=== PATIENT | female | born 1980 | race Caucasian/White ===

== ENCOUNTER → 2018-06-06 13:47 | Emergency (ER) | payer SELFPAY ==
[~2018-06-06 13:47] MED LIST: PPD test dose* 5 TU/0.1 ML TEST (*USE PPD ORDER SET*) ONE
== END | disposition home or self-care (01) ==
LOC: OHCORT 13:47
DX: Z11.1 Encounter for screening for respiratory tuberculosis (principal)

== ENCOUNTER 2020-11-19 09:26 | Inpatient (IN) ==
[~2020-11-19 09:26] MED LIST changes: +Buffered Lidocaine 1% SYRIN 1 ml INTRADERM ONE; +Famotidine IV 10 MG/ML 2 ml VIAL (20 mg) IV ONE; +Famotidine IV 10 MG/ML 2 ml VIAL (20 mg) ONE; +Heparin 5000 UNITS/ML 1 mL VIAL ONE; +Lactated Ringers 1000 ml BAG 1,000 ML IV SCH; -PPD test dose* 5 TU/0.1 ML TEST (*USE PPD ORDER SET*) ONE; +ceFAZolin 1 GM ADVAN 1 GM ADDV.VIAL IVPB ONE; +ceFAZolin 2 GM in NS PREMIX 2 GM/100 ML BAG IVPB ONE
[2020-11-19] MEDS ORDERED: fentaNYL 250 mcg/5 ml 50 MCG/ML 5 ml VIAL (250 MCG) ONE (09:43)
[2020-11-19] MEDS ORDERED: Midazolam 2 mg/2 ml VIAL 1 mg/ml 2 ml VIAL (2 mg) ONE (09:43)
[2020-11-19] MEDS ORDERED: Lidocaine 2% PF 5 ML VIAL ONE (09:45)
[2020-11-19] MEDS ORDERED: Bupivacaine 0.25% EPI 200,000 30 ML SDV ONE (11:15)
[2020-11-19] MEDS ORDERED: Methylene Blue 0.5 % 50 MG/10 ML AMP IV ONE (11:15)
[2020-11-19] MEDS ORDERED: Propofol 10 MG/ML 20 ML BTL ONE (11:23)
[2020-11-19] MEDS ORDERED: Rocuronium 50 mg VIAL 10 mg/ml 5 ml VIAL (50 mg) ONE ×2 (11:27→13:21)
[2020-11-19] MEDS ORDERED: Phenylephrine IV 10 MG/ML 1 ml VIAL ONE (11:51)
[2020-11-19] MEDS ORDERED: Dexamethasone IV 4 MG/ML VIAL 1 ml VIAL ONE (12:36)
[2020-11-19] MEDS ORDERED: Ondansetron 4 mg VIAL 2 MG/ML 2 ml VIAL ONE ×2 (12:36→16:54)
[2020-11-19] MEDS ORDERED: Sugammadex 500 MG/5 ML 5 ml VIAL IV PUSH ONE (12:36)
[2020-11-19] MEDS ORDERED: HYDROmorphone 1 MG/1 ML SYRINGE ONE ×2 (12:47→13:24)
[2020-11-19] MEDS ORDERED: DiMENhydriNATE IV 50 mg/ml 1 ml VIAL IV PUSH PRN (13:05)
[2020-11-19] MEDS ORDERED: Ondansetron 4 mg VIAL 2 MG/ML 2 ml VIAL IV PRN (13:05)
[2020-11-19] MEDS ORDERED: Acetaminophen IV 1 GM/100ML 100 ML IV ONE ×2 (13:05→14:52)
[2020-11-19] MEDS ORDERED: fentaNYL 100 mcg/2 ml 50 MCG/ML VIAL IV PRN (13:05)
[2020-11-19] MEDS ORDERED: Naloxone 0.4 mg VIAL 0.4 mg/ml 1 ml VIAL IV PRN (13:05)
[2020-11-19] MEDS ORDERED: diPHENhydraMINE IV 50 MG/ML 1 ml VIAL (BENADRYL) SLOW PUSH PRN (16:37)
[2020-11-19] MEDS ORDERED: HYDROmorphone 0.5 MG/0.5 ML SYRINGE IV SLOW PU PRN (16:37)
[2020-11-19] MEDS ORDERED: HYDROmorphone 1 MG/1 ML SYRINGE IV SLOW PU PRN (16:37)
[2020-11-19] MEDS ORDERED: DiMENhydriNATE IV 50 mg/ml 1 ml VIAL ONE (16:54)
[2020-11-19] MEDS: Lactated Ringers 1000 ml BAG 1,000 ML IV SCH (18:17)
[2020-11-19] MEDS ORDERED: Metoclopramide 5 MG/ML VIAL (10 mg) IV SLOW PU ONE (19:00)
[2020-11-19] MEDS: Famotidine IV 10 MG/ML 2 ml VIAL (20 mg) IV SLOW PU SCH (22:26)
[2020-11-19] MEDS: Heparin 5000 UNITS/ML 1 mL VIAL SUBCUT SCH (22:26)
[2020-11-20] MEDS: Lactated Ringers 1000 ml BAG 1,000 ML IV SCH ×2 (01:54→09:04)
[2020-11-20] MEDS: Ondansetron 4 mg VIAL 2 MG/ML 2 ml VIAL IV PRN ×3 (02:01→16:14)
[2020-11-20] MEDS: Heparin 5000 UNITS/ML 1 mL VIAL SUBCUT SCH ×2 (06:16→13:37)
[2020-11-20] MEDS: Famotidine IV 10 MG/ML 2 ml VIAL (20 mg) IV SLOW PU SCH (09:01)
[2020-11-20] MEDS ORDERED: HYDROcodone/ACET. 7.5/325 LIQ 15 ML UDC PO PRN (11:45)
[2020-11-20 15:49] VITALS: BP 133/56
[2020-11-20] MEDS ORDERED: D5W 1/2 NS KCl 20 meq 1000 ml 1,000 ML IV SCH (17:00)
[2020-11-21] MEDS ORDERED: Flu vaccine *QUAD* 2021-22* 0.5 ML SYRINGE IM ONE (09:00)
[2020-11-22] MEDS ORDERED: Scopolamine PATCH Remove NOTE PATCH OFF ONE (13:06)
== END 2020-11-20 16:50 | disposition home or self-care (01) | DRG 403 ==
LOC: AA 09:26 → SSU 18:25
PROVIDERS: ADMIT Surgery; ATTEND Surgery

== ENCOUNTER 2023-03-06 16:07 | Inpatient (IN) ==
[2023-03-06 16:42] LABS: Hematocrit 28.8 % (35-45); Hemoglobin 8.6 g/dL (11.5-14.3); Mean Corpuscular Hgb Conc 29.7 g/dL (31-36); Mean Corpuscular Volume 57.1 fL (80-97); Mean Platelet Volume 6.6 fL (7.5-11.2); Platelet Count 597 10^3/uL (150-450); Red Blood Count 5.04 10^6/uL (3.63-4.92); Red Cell Distribution Width 18.7 % (12-17); White Blood Count 9.7 10^3/uL (3.8-11.8)
[2023-03-06 16:44] LABS: INR 1.14 (0.83-1.13)
[2023-03-06 16:55] LABS: ALT 16 U/L (7-52); AST 15 U/L (13-39); Albumin 3.5 g/dL (3.2-5.2); Albumin/Globulin Ratio 0.9 (1-3); Alkaline Phosphatase 74 U/L (35-149); Anion Gap 7 mmol/L (2-16); Blood Urea Nitrogen 23 mg/dL (6-24); CO2 Carbon Dioxide 24 mmol/L (22-32); Calcium 8.9 mg/dL (8.6-10.3); Chloride 106 mmol/L (101-111); Creatinine, Serum 0.42 mg/dL (0.51-0.95); Globulin 3.9 g/dL (2-4); Glucose 135 mg/dL (70-100); Potassium 3.3 mmol/L (3.5-5.0); Sodium 137 mmol/L (135-145); Total Bilirubin 0.3 mg/dL (0.2-1.0); Total Protein 7.4 g/dL (6.4-8.9); eGFR CKD-EPI 125.9 (>60)
[2023-03-06 17:01] LABS: ABS Basophils 0.2 10^3/uL (0.0-0.1); ABS Monocytes 0.5 10^3/uL (0.0-0.9); ABS Nucleated RBC 0.01 10^3/ul; Anisocytosis 2+; Eosinophil % 0.4 %; Hypochromasia 1+; Lymphocyte % 10.5 %; Microcytosis 2+; Nucleated Red Blood Cells % 0.1 %/100WBC (0.0-0.8)
[2023-03-06 17:02] LABS: High Sens Troponin Baseline < 3 pg/mL (<15)
[2023-03-06] MEDS ORDERED: fentaNYL 100 mcg/2 ml 50 MCG/ML VIAL IV SLOW PU ONE (17:30)
[2023-03-06 17:43] LABS: Lipase 57 U/L (11.0-82.0)
[2023-03-06] MEDS ORDERED: Piperacillin/Tazobac 3.375 BAG 3.375 GM/100 ML BAG IV ONE (17:44)
[2023-03-06] MEDS ORDERED: HYDROmorphone 0.5 MG/0.5 ML SYRINGE IV SLOW PU PRN (17:51)
[2023-03-06] MEDS ORDERED: Zosyn per Pharmacy NOTE FOLLOW UP SCH (18:00)
[2023-03-06 18:04] LABS: High Sensitivity Troponin 1 Hr < 3 pg/mL (<15)
[2023-03-06] MEDS ORDERED: Iodixanol (CONTRAST) 320 MG/ML 100 ML SDV IV ONE (18:30)
[2023-03-06] MEDS ORDERED: Midazolam 2 mg/2 ml VIAL 1 mg/ml 2 ml VIAL (2 mg) ONE (19:06)
[2023-03-06] MEDS ORDERED: Rocuronium 50 mg VIAL 10 mg/ml 5 ml VIAL (50 mg) ONE (19:06)
[2023-03-06] MEDS ORDERED: Propofol 10 MG/ML 20 ML BTL ONE (19:06)
[2023-03-06] MEDS ORDERED: Lidocaine 2% PF 5 ML VIAL ONE (19:06)
[2023-03-06] MEDS ORDERED: fentaNYL 100 mcg/2 ml 50 MCG/ML VIAL ONE (19:07)
[2023-03-06] MEDS ORDERED: Famotidine IV 10 MG/ML 2 ml VIAL (20 mg) ONE (19:20)
[2023-03-06] MEDS ORDERED: HYDROmorphone 1 MG/1 ML SYRINGE IV SLOW PU PRN (19:23)
[2023-03-06] MEDS ORDERED: HYDROmorphone 1 MG/1 ML SYRINGE IV SLOW PU ONE (19:36)
[2023-03-06] MEDS ORDERED: Bupivacaine 0.25% SDV 30 ML ONE (19:44)
[2023-03-06] MEDS ORDERED: Ondansetron 4 mg VIAL 2 MG/ML 2 ml VIAL ONE (19:59)
[2023-03-06 20:06] LABS: Rapid COVID-19 Molecular Undetected (Undetected)
[2023-03-06 20:14] LABS: Influenza A Molecular Negative (Negative); Influenza B Molecular Negative (Negative)
[2023-03-06] MEDS ORDERED: Phenylephrine IV 10 MG/ML 1 ml VIAL ONE (20:18)
[2023-03-06] MEDS ORDERED: Acetaminophen IV 1 GM/100ML 1,000 MG/100 ML BAG IV ONE (20:35)
[2023-03-06] MEDS ORDERED: Dexamethasone IV 4 MG/ML VIAL 1 ml VIAL ONE (20:42)
[2023-03-06] MEDS ORDERED: HYDROmorphone 1 MG/1 ML SYRINGE IV PRN (20:53)
[2023-03-06] MEDS ORDERED: Naloxone 0.4 mg VIAL 0.4 mg/ml 1 ml VIAL IV PRN (20:53)
[2023-03-06] MEDS ORDERED: fentaNYL 100 mcg/2 ml 50 MCG/ML VIAL IV PRN (20:53)
[2023-03-06] MEDS ORDERED: Ondansetron 4 mg VIAL 2 MG/ML 2 ml VIAL IV PRN (20:53)
[2023-03-06] MEDS ORDERED: ZOSYN 3.375 GM Q8H per EXTENDED INFUSION IV SCH (22:00)
[2023-03-06] MEDS ORDERED: Piperacillin/Tazobac 3.375 BAG 3.375 GM/100 ML BAG IV SCH (23:45)
[2023-03-06] MEDS: D5W 1/2 NS 40 Meq KCL 1000 ml 1,000 ML IV SCH (23:54)
[2023-03-06] MEDS: ZOSYN 3.375 GM Q8H per EXTENDED INFUSION IV SCH (23:55)
[2023-03-06] MEDS: Pantoprazole VIAL 40 MG VIAL IV SCH (23:57)
[2023-03-06] MEDS: HYDROmorphone 0.5 MG/0.5 ML SYRINGE IV SLOW PU PRN (23:57)
[2023-03-06] MEDS: Ondansetron 4 mg VIAL 2 MG/ML 2 ml VIAL IV PRN (23:57)
[2023-03-07] MEDS: HYDROmorphone 0.5 MG/0.5 ML SYRINGE IV SLOW PU PRN ×4 (01:33→08:31)
[2023-03-07] MEDS: Ondansetron 4 mg VIAL 2 MG/ML 2 ml VIAL IV PRN (05:12)
[2023-03-07 06:26] LABS: ABS Lymphocytes 0.3 10^3/uL (1.0-4.8); ABS Monocytes 0.7 10^3/uL (0.0-0.9); ABS Neutrophils 12.8 10^3/uL (1.5-7.6); Hematocrit 24.5 % (35-45); Hemoglobin 7.1 g/dL (11.5-14.3); Lymphocyte % 2.5 %; Mean Corpuscular Hemoglobin 16.7 pg (27-33); Mean Corpuscular Hgb Conc 29.1 g/dL (31-36); Mean Corpuscular Volume 57.2 fL (80-97); Mean Platelet Volume 6.7 fL (7.5-11.2); Platelet Count 468 10^3/uL (150-450); Red Blood Count 4.28 10^6/uL (3.63-4.92); Red Cell Distribution Width 18.8 % (12-17); White Blood Count 13.9 10^3/uL (3.8-11.8)
[2023-03-07 06:43] LABS: Calcium 8.4 mg/dL (8.6-10.3); Creatinine, Serum 0.48 mg/dL (0.51-0.95); Potassium 3.4 mmol/L (3.5-5.0)
[2023-03-07] MEDS: ZOSYN 3.375 GM Q8H per EXTENDED INFUSION IV SCH ×2 (07:29→16:01)
[2023-03-07] MEDS: D5W 1/2 NS 40 Meq KCL 1000 ml 1,000 ML IV SCH ×2 (08:18→18:16)
[2023-03-07] MEDS: Pantoprazole VIAL 40 MG VIAL IV SCH ×2 (08:31→22:00)
[2023-03-07] MEDS ORDERED: KCL 20 MEQ/100 ML IVPREMIX 20 MEQ/100 ML BAG IV ONE (11:19)
[2023-03-07] MEDS: Acetaminophen IV 1 GM/100ML 1,000 MG/100 ML BAG IV SCH ×2 (11:37→20:36)
[2023-03-07] MEDS ORDERED: HYDROmorphone 0.5 MG/0.5 ML SYRINGE IV SLOW PU PRN ×2 (12:07→22:20)
[2023-03-07] MEDS: Nicotine PATCH 21 MG/24 HR PATCH TRANSDERM SCH (12:07)
[2023-03-07] MEDS ORDERED: fentaNYL 100 mcg/2 ml 50 MCG/ML VIAL IV SLOW PU PRN ×2 (22:19→22:20)
[2023-03-08] MEDS: ZOSYN 3.375 GM Q8H per EXTENDED INFUSION IV SCH ×3 (00:18→16:41)
[2023-03-08] MEDS ORDERED: Methylene Blue 1% (ANTIDOTE) 10 MG/ML 1 ML SDV VIAL IVPB ONE (00:36)
[2023-03-08] MEDS ORDERED: Bupivacaine 0.25% SDV 30 ML ONE (00:36)
[2023-03-08] MEDS ORDERED: NS 0.9% 1000 ml BAG 1,000 ML IV SCH (01:00)
[2023-03-08] MEDS: Ondansetron 4 mg VIAL 2 MG/ML 2 ml VIAL IV PRN ×4 (01:03→19:47)
[2023-03-08] MEDS: HYDROmorphone 1 MG/1 ML SYRINGE IV SLOW PU PRN ×5 (01:04→22:15)
[2023-03-08] MEDS: Acetaminophen IV 1 GM/100ML 1,000 MG/100 ML BAG IV SCH ×4 (01:25→20:10)
[2023-03-08] MEDS ORDERED: Naloxone 0.4 mg VIAL 0.4 mg/ml 1 ml VIAL IV PRN (02:29)
[2023-03-08] MEDS ORDERED: HYDROmorphone 1 MG/1 ML SYRINGE IV PRN (02:29)
[2023-03-08] MEDS ORDERED: fentaNYL 100 mcg/2 ml 50 MCG/ML VIAL IV PRN (02:29)
[2023-03-08] MEDS ORDERED: Ondansetron 4 mg VIAL 2 MG/ML 2 ml VIAL IV PRN (02:29)
[2023-03-08] MEDS ORDERED: Rocuronium 50 mg VIAL 10 mg/ml 5 ml VIAL (50 mg) ONE (02:50)
[2023-03-08] MEDS ORDERED: Propofol 10 MG/ML 20 ML BTL ONE (02:50)
[2023-03-08] MEDS ORDERED: Phenylephrine 40 mcg/mL 10mL (400mcg) SYRINGE ONE (03:21)
[2023-03-08] MEDS ORDERED: fentaNYL 100 mcg/2 ml 50 MCG/ML VIAL ONE ×2 (03:34→05:08)
[2023-03-08] MEDS ORDERED: Desflurane 240 ML INH ONE (04:26)
[2023-03-08] MEDS ORDERED: Ondansetron 4 mg VIAL 2 MG/ML 2 ml VIAL ONE ×2 (04:32→05:08)
[2023-03-08] MEDS ORDERED: Dextrose 50% Syringe 50 ml 25 GM/50 ML SYRINGE ONE (05:39)
[2023-03-08] MEDS ORDERED: Scopolamine 1 mg/72hr PATCH ONE (05:41)
[2023-03-08] MEDS: Pantoprazole VIAL 40 MG VIAL IV SCH ×2 (09:24→20:10)
[2023-03-08] MEDS: Nicotine PATCH 21 MG/24 HR PATCH TRANSDERM SCH (10:02)
[2023-03-08 15:01] LABS: ABS Basophils 0.1 10^3/uL (0.0-0.1); ABS Lymphocytes 0.8 10^3/uL (1.0-4.8); ABS Monocytes 0.6 10^3/uL (0.0-0.9); ABS Neutrophils 10.4 10^3/uL (1.5-7.6); ABS Nucleated RBC 0.01 10^3/ul; Eosinophil % 0.2 %; Hematocrit 22.8 % (35-45); Hemoglobin 6.6 g/dL (11.5-14.3); Lymphocyte % 6.9 %; Mean Corpuscular Hemoglobin 16.5 pg (27-33); Mean Corpuscular Hgb Conc 28.8 g/dL (31-36); Mean Corpuscular Volume 57.5 fL (80-97); Mean Platelet Volume 8.3 fL (7.5-11.2); Platelet Count 394 10^3/uL (150-450); Red Blood Count 3.97 10^6/uL (3.63-4.92); Red Cell Distribution Width 18.5 % (12-17); White Blood Count 11.9 10^3/uL (3.8-11.8)
[2023-03-08 15:20] LABS: Calcium 8.1 mg/dL (8.6-10.3); Creatinine, Serum 0.43 mg/dL (0.51-0.95); Potassium 3.9 mmol/L (3.5-5.0); eGFR CKD-EPI 125.2 (>60)
[2023-03-08] MEDS: D5W 1/2 NS KCl 20 meq 1000 ml 1,000 ML IV SCH (15:20)
[2023-03-08] MEDS ORDERED: fentaNYL 100 mcg/2 ml 50 MCG/ML VIAL IV SLOW PU ONE (21:45)
[2023-03-09] MEDS: ZOSYN 3.375 GM Q8H per EXTENDED INFUSION IV SCH ×3 (00:38→17:26)
[2023-03-09] MEDS: Ondansetron 4 mg VIAL 2 MG/ML 2 ml VIAL IV PRN ×2 (00:50→21:04)
[2023-03-09] MEDS: Acetaminophen IV 1 GM/100ML 1,000 MG/100 ML BAG IV SCH ×5 (02:21→20:25)
[2023-03-09] MEDS: HYDROmorphone 1 MG/1 ML SYRINGE IV SLOW PU PRN ×4 (02:21→21:00)
[2023-03-09] MEDS: D5W 1/2 NS KCl 20 meq 1000 ml 1,000 ML IV SCH ×2 (05:08→15:33)
[2023-03-09 06:20] LABS: ABS Eosinophils 0.1 10^3/uL (0.0-0.5); ABS Lymphocytes 0.7 10^3/uL (1.0-4.8); ABS Monocytes 0.5 10^3/uL (0.0-0.9); ABS Neutrophils 7.2 10^3/uL (1.5-7.6); Eosinophil % 0.8 %; Hematocrit 22.2 % (35-45); Hemoglobin 6.6 g/dL (11.5-14.3); Lymphocyte % 7.9 %; Mean Corpuscular Hemoglobin 16.8 pg (27-33); Mean Corpuscular Hgb Conc 29.5 g/dL (31-36); Mean Platelet Volume 8.3 fL (7.5-11.2); Platelet Count 397 10^3/uL (150-450); White Blood Count 8.4 10^3/uL (3.8-11.8)
[2023-03-09 06:34] LABS: Calcium 8.2 mg/dL (8.6-10.3); Creatinine, Serum 0.38 mg/dL (0.51-0.95); Potassium 3.7 mmol/L (3.5-5.0)
[2023-03-09] MEDS: Nicotine PATCH 21 MG/24 HR PATCH TRANSDERM SCH (09:41)
[2023-03-09] MEDS: Pantoprazole VIAL 40 MG VIAL IV SCH ×2 (09:42→20:27)
[2023-03-09] MEDS ORDERED: HYDROmorphone 0.5 MG/0.5 ML SYRINGE IV SLOW PU PRN (10:51)
[2023-03-09 15:15] LABS: Ferritin 14.9 ng/mL (11-307)
[2023-03-09 17:04] LABS: % Iron Saturation 5 % (15-55); .Transferrin 277 mg/dL (203-362); Iron < 20 ug/dL (50-212); Total Iron Binding Capacity 388 mcg/dL (250-450); Unsaturated Iron Binding 368 ug/dL
[2023-03-10] MEDS: ZOSYN 3.375 GM Q8H per EXTENDED INFUSION IV SCH ×3 (00:07→16:24)
[2023-03-10] MEDS: D5W 1/2 NS KCl 20 meq 1000 ml 1,000 ML IV SCH (00:10)
[2023-03-10] MEDS: Acetaminophen IV 1 GM/100ML 1,000 MG/100 ML BAG IV SCH ×4 (02:32→20:04)
[2023-03-10] MEDS: Ondansetron 4 mg VIAL 2 MG/ML 2 ml VIAL IV PRN ×3 (02:40→21:18)
[2023-03-10] MEDS: HYDROmorphone 1 MG/1 ML SYRINGE IV SLOW PU PRN ×3 (02:40→21:16)
[2023-03-10] MEDS: Pantoprazole VIAL 40 MG VIAL IV SCH ×2 (08:18→21:11)
[2023-03-10] MEDS: Nicotine PATCH 21 MG/24 HR PATCH TRANSDERM SCH (08:18)
[2023-03-11] MEDS: ZOSYN 3.375 GM Q8H per EXTENDED INFUSION IV SCH ×2 (00:16→09:33)
[2023-03-11] MEDS: Acetaminophen IV 1 GM/100ML 1,000 MG/100 ML BAG IV SCH ×2 (02:03→09:33)
[2023-03-11] MEDS: HYDROmorphone 1 MG/1 ML SYRINGE IV SLOW PU PRN (06:17)
[2023-03-11] MEDS: Ondansetron 4 mg VIAL 2 MG/ML 2 ml VIAL IV PRN (06:18)
[2023-03-11] MEDS: Pantoprazole VIAL 40 MG VIAL IV SCH (09:32)
[2023-03-11] MEDS: Nicotine PATCH 21 MG/24 HR PATCH TRANSDERM SCH (09:32)
[2023-03-11 09:48] VITALS: BP 123/86
== END 2023-03-11 12:20 | disposition home or self-care (01) | DRG 223 ==
LOC: ED 16:07 → OR 19:41 → EDHOLD 19:42 → SSU 23:02 → AA 03-08 01:23 → SSU 03-08 04:59
PROVIDERS: ADMIT Surgery; ATTEND Surgery